=== PATIENT | female | born 1975 | race Caucasian/White ===

== ENCOUNTER 2020-06-09 01:34 | Outpatient (CLI) | payer MEDICAID, SELFPAY ==
--- NOTE | 2020-06-09 15:15 | DI.MAMMO_ITS ---
EXAM: MG MAMMO SCREENING CLINICAL HISTORY: screening,Z12.39. TECHNIQUE: Bilateral full field digital CC and MLO mammographic images were obtained with 3D tomosyn thesis and utilizing computer aided detection (CAD). COMPARISON: None. This is a baseline mammogram on this 45-year-old patient. FINDINGS: There are no CAD designations. There are no new spiculated masses nor malignant appearing microcalcification groups. There is no significant architectural distortion nor skin thickening-retraction. IMPRESSION: No radiographic evidence of malignancy. BI-RADS Category 1 - Negative Breast Density - Category B - Scattered areas of fibroglandular density Breast density Category C or D implies that the patient has dense breast tissue. Dense breast tissue can make it harder to find cancer on a mammogram. Dense breast tissue is also associated with an incr eased risk of breast cancer. This information about the result of the mammogram report was provided to the patient to raise their awareness. Use this report when you speak with the patient about their risks for breast cancer, which includes their family history. At that time, you may recommend additional screening tests (Ultrasoun d or MRI) as these tests may add significant information. A negative radiographic report should not delay biopsy if a dominant or clinically suspicious mass is present. Up to ten percent of cancers are not identified on mammography. A negative report may reinforce clinical impression. Adenosis and dense breasts may obscure an underlying neoplasm. False positive reports average 6 to 10%. Patient will receive a letter notifying them of these results.
== END 2020-06-09 01:54 ==
PROVIDERS: PCP Nurse Practitioner; Visit Provider Nurse Practitioner
DX: Z12.31 Encounter for screening mammogram for malignant neoplasm of breast (principal)
CPT/HCPCS: 77063; 77067

== ENCOUNTER 2020-06-10 16:50 | Outpatient (REF) | payer MEDICAID, SELFPAY ==
--- NOTE | 2020-06-10 15:30 | PAPFT_PTH ---
PATIENT: Dayana Murdock LOC: [facility] U#:[id number] AGE/SX: 45/F ROOM: RE06/10/[address]: Magali Rutledge, PhD [employer] : 1975 BED: DIS: 06/10/2020 SPEC #: [id number] RECD: 06/11/20 12:47 STATUS: SAFIA REChase #: [id number] LUZMA: 06/10/20 15:[address]: Magali Rutledge DEPT: [facility] Cytology RECD BY: [place] Tissues: 1 - CX/ENDOCX FOR PAP SMEARS Procedures: PAP THIN PREP/UVM Screening HPV DNA PROBE Comments: [id number]
== END 2020-06-10 16:51 | disposition home or self-care (01) ==
LOC: LBN 16:50
PROVIDERS: PCP Nurse Practitioner; Visit Provider Nurse Practitioner
DX: Z12.4 Encounter for screening for malignant neoplasm of cervix (principal); Z11.51 Encounter for screening for human papillomavirus (HPV)
CPT/HCPCS: 88142; 87624

== ENCOUNTER 2020-06-12 02:05 | Outpatient (CLI) | payer MEDICAID, SELFPAY ==
[2020-06-12 12:57] LABS: Hemoglobin A1C 5.1 % (<5.7)
[2020-06-12 13:07] LABS: Calculated LDL 89 mg/dL (<100); Cholesterol 179 mg/dL (<200); HDL Cholesterol 78 mg/dL (40-60); Triglyceride 64 mg/dL (<150)
== END 2020-06-12 02:06 | disposition home or self-care (01) ==
PROVIDERS: PCP Nurse Practitioner; Visit Provider Nurse Practitioner
DX: Z13.1 Encounter for screening for diabetes mellitus (principal); Z13.6 Encounter for screening for cardiovascular disorders
CPT/HCPCS: 36415; 80061; 83036

== ENCOUNTER 2021-04-06 02:35 | Outpatient (CLI) | payer MEDICAID, SELFPAY ==
[2021-04-06 22:41] LABS: Ferritin 5 ng/mL (10-291)
== END 2021-04-06 02:36 | disposition home or self-care (01) ==
LOC: LBO 02:35
PROVIDERS: PCP Nurse Practitioner; Visit Provider Nurse Practitioner
DX: M25.561 Pain in right knee (principal)
CPT/HCPCS: 36415; 82728

== ENCOUNTER 2022-04-20 22:31 | Outpatient (REF) | payer MEDICAID, SELFPAY ==
[2022-04-23 11:46] LABS: COVID-19 RT-PCR UVMMC Result Positive (Negative)
== END 2022-04-20 22:32 | disposition home or self-care (01) ==
LOC: LBN 22:31
PROVIDERS: PCP Nurse Practitioner Family; Visit Provider Nurse Practitioner Family
DX: Z20.822 Contact with and (suspected) exposure to COVID-19 (principal)
CPT/HCPCS: U0003

== ENCOUNTER → 2023-04-28 01:29 | Outpatient (CLI) | payer MEDICAID, SELFPAY ==
--- NOTE | 2023-04-28 14:38 | DI.RAD_ITS ---
Exam(s) XR SHOULDER RT COMPLETE 2+V EXAM: XR SHOULDER RT COMPLETE 2+V CLINICAL HISTORY: right shoulder pain after fall 1 week ago,m25.511. TECHNIQUE: 2D digital imaging was performed. COMPARISON: No exams were available for comparison FINDINGS: Four views. No evidence of fracture or dislocation nor significant soft tissue densities. Subacromial space appe ars unremarkable. There are no degenerative changes in the glenohumeral and AC joints. Clavicle int act. Coracoid process appears intact. Bone density normal. No significant osseous lesions. IMPRESSION: No significant osseous findings in the right shoulder. DATA REPOSITORY: RADIATION DOSE DELIVERED:
== END ==
PROVIDERS: PCP Nurse Practitioner Family; Visit Provider Nurse Practitioner Family
DX: M25.511 Pain in right shoulder (principal)
CPT/HCPCS: 73030

== ENCOUNTER → 2023-07-06 01:45 | Outpatient (CLI) | payer MEDICAID, SELFPAY ==
--- NOTE | 2023-07-06 08:30 | DI.MAMMO_ITS ---
Exam(s) MAMMO SCREENING EXAM: MAMMO SCREENING CLINICAL HISTORY: screening,Z12.39. TECHNIQUE: Bilateral full field digital CC and MLO mammographic images were obtained with 3D tomosyn thesis and utilizing computer aided detection (CAD). COMPARISON: Prior baseline mammogram of May 2020 FINDINGS: There has been no significant change in the appearance and distribution of the fibroglandular tissue. There are no CAD designations. There are no new spiculated masses nor malignant appearing microcalcification groups. There is no significant architectural distortion nor skin thickening-retraction. IMPRESSION: No radiographic evidence of malignancy. BI-RADS Category 1 - Negative Breast Density - Category B - Scattered areas of fibroglandular density Breast density Category C or D implies that the patient has dense breast tissue. Dense breast tissue can make it harder to find cancer on a mammogram. Dense breast tissue is also associated with an incr eased risk of breast cancer. This information about the result of the mammogram report was provided to the patient to raise their awareness. Use this report when you speak with the patient about their risks for breast cancer, which includes their family history. At that time, you may recommend additional screening tests (Ultrasoun d or MRI) as these tests may add significant information. A negative radiographic report should not delay biopsy if a dominant or clinically suspicious mass is present. Up to ten percent of cancers are not identified on mammography. A negative report may reinforce clinical impression. Adenosis and dense breasts may obscure an underlying neoplasm. False positive reports average 6 to 10%. Patient will receive a letter notifying them of these results.
== END ==
PROVIDERS: PCP Nurse Practitioner Family; Visit Provider Nurse Practitioner Family
DX: Z12.31 Encounter for screening mammogram for malignant neoplasm of breast (principal)
CPT/HCPCS: 77063; 77067

== ENCOUNTER → 2023-07-28 00:27 | Outpatient (CLI) | payer MEDICAID, SELFPAY ==
--- NOTE | 2023-07-28 09:30 | DI.MRI_ITS ---
Exam(s) MR UPPER JOINT RT WO EXAM: MR UPPER JOINT RT WO CLINICAL HISTORY: ? RTC TEAR M25.511 PAIN RT SHOULDER. TECHNIQUE: Multiplanar multisequence MRI was performed. COMPARISON: CR XR SHOULDER RT COMPLETE 2+V from 04/28/2023 FINDINGS: BONES: There is no fracture or contusion pattern. JOINTS: Mild degenerative changes are seen at the acromioclavicular joint. Small subchondral cysts a re seen in the humeral head. The glenohumeral joint is normal. No joint effusion. TENDONS: Supraspinatus: Unremarkable. Infraspinatus: There is tendinosis of the infraspinatus tendon. No evidence of a tendon tear. Subscapularis: Unremarkable. Teres Minor: Unremarkable. Biceps and [place]: Unremarkable. MUSCLES: Unremarkable. GLENOID LABRUM: Unremarkable on this noncontrast examination. SOFT TISSUES: Unremarkable. LIGAMENTS: Unremarkable. OTHER: There is a small amount of edema/fluid in the subacromial subdeltoid bursa. IMPRESSION: 1. No evidence of a rotator cuff or labral tear on this noncontrast examination. 2. Mild degenerative changes at the acromioclavicular joint. 3. Mild edema/fluid in the subacromial subdeltoid bursa. DATA REPOSITORY:
== END ==
PROVIDERS: PCP Nurse Practitioner Family; Visit Provider Student in an Organized Health Care Education/Training Program
DX: M25.511 Pain in right shoulder (principal); M19.011 Primary osteoarthritis, right shoulder
CPT/HCPCS: 73221